=== PATIENT | male | born 1970 | race Caucasian/White ===

== ENCOUNTER 2020-07-05 14:37 | Outpatient (CLI) | payer OTHER ==
--- NOTE | 2020-07-05 15:02 | XRAY Report ---
PROCEDURE: Toe(s) LT INDICATIONS: LACERATION TO LEFT TOE TECHNIQUE: 2 views of the fifth toe(s) acquired. COMPARISON: None FINDINGS: Bones: No fractures or dislocations. No suspicious bony lesions. Soft tissues: No suspicious soft tissue densities. No radiopaque foreign body. Mild soft tissue swel ling appreciated. IMPRESSION: No acute osseous abnormality. Reviewed by: Curtis Soliz MD on 07/05/2020 3:01 PM PDT Approved by: Curtis Soliz MD on 07/05/2020 3:01 PM PDT Station ID: [id number]
== END 2020-07-05 14:38 | disposition home or self-care (01) ==
LOC: DI.S 14:37
PROVIDERS: ATTEND Physician Assistant
DX: S91.115A Laceration without foreign body of left lesser toe(s) without damage to nail, initial encounter (principal)
CPT/HCPCS: 73660